=== PATIENT | male | born 1980 | race African-American/Black ===

== ENCOUNTER 2020-07-27 12:45 | Emergency (ER) | payer MEDICAID, SELFPAY ==
--- NOTE | 2020-07-27 12:50 | ED.SKABFB ---
HPI - Skin/Abscess/Foreign Bdy General Chief complaint: Skin/Abscess/Foreign Body Stated complaint: abscess on neck Time Seen by Provider: 07/27/20 12:50 Source: patient and RN notes reviewed Limitations: no limitations History of Present Illness HPI narrative: 40-year-old male presents to [facility] with complaints of a mass to the left neck, lower jawline. States that this morning he woke up and it was bigger than normal. Reports that 6 months ago it developed and was prescribed antibiotics but never fully went away. Denies chest pain. Denies abdominal pain, denies fevers, no nausea vomiting or diarrhea. No airway issues at this time. Related Data Home Medications Medication Instructions Recorded Confirmed No Home Medications 07/27/20 07/27/20 Allergies Allergy/AdvReac Type Severity Reaction Status Date / Time No Known Allergies Allergy Verified 07/27/20 13:46 Review of Systems Review of Systems: Narrative: CONSTITUTIONAL: Denies fever, chills, or sweats. EYES: Denies visual changes, redness, or discharge. ENT: Denies rhinorrhea, congestion, sore throat, or otalgia. CARDIOVASCULAR: Denies chest pain, palpitations, or edema. RESPIRATORY: Denies cough or dyspnea. GASTROINTESTINAL: Denies abdominal pain, nausea, vomiting, or diarrhea. GENITOURINARY: Denies dysuria or hematuria. SKIN: Denies rash or itching. MUSCULOSKELETAL: Denies back pain, joint pain, or myalgia. NEUROLOGIC: Denies headache, numbness, or weakness. PSYCHIATRIC: Denies anxiety or depression. All other systems reviewed are negative, except as documented in HPI. Mass to the left side of neck PMFSH Social History Social History Gender identity (if verbalized by the patient): Male Comments At the time of my signature, I reviewed and agree with the nursing past medical, surgical, social, and family history. There is no relevant family history pertinent to the patient complaint. Exam Narrative: Exam Narrative: GENERAL: This is a well-nourished, well-developed patient, in no apparent distress. HEAD: normocephalic, atraumatic. EYES: PERRL. Sclera clear/white. Vision is grossly intact. EARS: External ears normal. NOSE: External nose normal with no obvious nasal discharge, nares without redness, no rhinorrhea. THROAT: Mucous membranes moist, posterior pharynx clear. NECK: Neck supple, non-tender with left-sided lymphadenopathy or mass measuring 6-1/2 cm anterior posterior at widest margin. CARDIOVASCULAR: Regular rate and rhythm without murmurs, gallops, or rubs. RESPIRATORY: Clear to auscultation. Breath sounds equal bilaterally. No wheezes, rales, or rhonchi. GASTROINTESTINAL: Abdomen soft, non-tender, nondistended. SKIN: warm, intact with no suspicious lesions or rash, good texture and turgor. No redness around site. No facial cellulitis noted. NEURO: awake, alert, and oriented to person, place and time. There were no obvious focal neurologic abnormalities. EXTREMITIES: No clubbing, cyanosis, or edema. No joint tenderness. BACK: Nontender without deformity or crepitance. No flank tenderness. Neck: Neck: full ROM Neck images: 1. 6.5cm mass, fluctuance noted. Very mobile Course Course Emergency Course: Examination of this patient. Concern for dental abscess, abnormal mass, lymphadenopathy, cancer will refer to emergency room for evaluation, CT scan. Attempted to send to [facility] due to patient request. Spoke with , he stated he would be happy to see this patient however they have no axillary services, no ENT. 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 [id number] Robles, accepted the patient for transfer. Vital Signs Vital signs: Vital Signs Temperature 99.6 F 07/27/20 13:03 Pulse Rate 86 07/27/20 13:03 Respiratory Rate 20 07/27/20 13:03 Blood Pressure 154/104 H 07/27/20 13:03 Pulse Oximetry 99 07/27/20 13:03 Temperature 99.6 F 07/27/20 13:1
[2020-07-27 13:03] VITALS: BP 154/104; PULSE 86; RESP 20; TEMP 37.6; O2SAT 99
--- NOTE | 2020-07-27 13:06 | PC.NURSE ---
Addendum entered by Asia Dorantes RN 07/27/20 13:12: Guera Smith NP spoke with Dr Rolle at [facility] and no ENT coverage but would be happy to see patient. Guera BILL spoke with patient in regards to going to [facility] and is in agreement Original Note: Report called to [facility] appropriate paperwork signed
[2020-07-27 13:16] VITALS: BP 154/104; PULSE 86; RESP 20; TEMP 37.6; O2SAT 99
--- NOTE | 2020-07-27 13:20 | PC.NURSE ---
Report to [facility] ALFREDO and Guera Lopez [employer] spoke with Dr Salcido
== END 2020-07-27 13:24 | disposition short-term general hospital (02) ==
PROVIDERS: Emergency Provider Nurse Practitioner
DX: R22.1 Localized swelling, mass and lump, neck (principal)
CPT/HCPCS: 99202; G0463

== ENCOUNTER 2020-07-27 13:37 | Emergency (ER) | payer MEDICAID, SELFPAY ==
--- NOTE | ~2020-07-27 | CT_ITS ---
EXAMINATION: CT soft tissue neck w con DATE: 07/27/2020 15:20 INDICATION: Left neck mass. TECHNIQUE: Computed tomography (CT) of the neck was performed with 75 mL Omnipaque-350 intravenous co ntrast. Automated exposure control and iterative reconstruction technique were employed. The dose-bear gth product was 571.22 mGy-cm. COMPARISON: None FINDINGS: There is mild emphysema. There is a 5 mm nodule in right thyroid lobe, likely not clinicall y significant. There are no pathologically enlarged lymph nodes. In the left neck, there is a 3.4 x 1 .7 x 3.3 cm subcutaneous lipoma. The cervical carotid arteries are normal. There is mucosal thickenin g in the maxillary sinuses. There is moderate cervical spondylosis. There is multifocal dental diseas e. IMPRESSION: 1. Subcutaneous lipoma in the left neck. Reviewed, dictated and finalized at location A. [employer]
[2020-07-27 13:44] VITALS: BP 149/99; PULSE 68; RESP 18; TEMP 36.2; O2SAT 100
--- NOTE | 2020-07-27 13:50 | ED.GENADULT ---
HPI - General Adult General Chief complaint: Unspecified Stated complaint: Mass On Neck Time Seen by Provider: 07/27/20 13:50 History of Present Illness HPI narrative: 40 yo male w/ h/o dental infection presents to the ED for a neck mass. He reports that he has had a small bump n the left side of his neck for a long time. It has significantly increased in size over the past few days. He has previously had teeth removed near that area. It is mildly tender. No fever, chills, dental pain, drainage. Related Data Home Medications Medication Instructions Recorded Confirmed No Home Medications 07/27/20 07/27/20 Allergies Allergy/AdvReac Type Severity Reaction Status Date / Time No Known Allergies Allergy Verified 07/27/20 13:46 Review of Systems Review of Systems: All systems reviewed & are unremarkable except as noted in HPI and below Constitutional: Constitutional: Denies fever(s) Eyes: Eyes: Reports no additional eye complaints ENT: Reports system reviewed and no additional complaints, except as documented Cardiovascular: Cardiovascular: Denies chest pain Respiratory: Respiratory: Denies dyspnea [facility] Social History Social History Gender identity (if verbalized by the patient): Male Exam Const: General: healthy appearing, no acute distress and alert Orientation/consciousness: patient oriented x3 HENMT: Other: mobile fluctuant mass at the left angle of the mandible. Neck: Neck: normal visual inspection and no lymphadenopathy Resp: Effort & Inspection: normal respiratory effort Auscultation: clear to auscultation bilaterally, no rales, no rhonchi and no wheezes Cardio: Jugular venous distension: no JVD Rate: regular rate Rhythm: regular rhythm Heart sounds: no murmurs GI: Inspection: non-distended GI Palp: Yes Soft to palpation and No Tenderness to palpation present (GI) Skin: General skin exam: normal color Neuro: General: patient oriented x3 and moves all extremities Speech: normal speech Extrem: General: no edema Psych: Appearance: well kempt Affect: normal affect Course Vital Signs Vital signs: Vital Signs Temperature 36.2 C L 07/27/20 13:44 Pulse Rate 68 07/27/20 13:44 Respiratory Rate 18 07/27/20 13:44 Blood Pressure 149/99 H 07/27/20 13:44 Pulse Oximetry 100 07/27/20 13:44 Temperature 36.2 C L 07/27/20 13:44 Pulse Rate 64 07/27/20 16:03 Respiratory Rate 12 07/27/20 16:03 Blood Pressure 134/67 07/27/20 16:03 Pulse Oximetry 99 07/27/20 16:03 Medical Decision Making MDM Narrative Medical decision making narrative: Case discussed with Dr. Mujica. He would be happy to see him in clinic for potential removal. Vital Signs Vital Signs: Vital Signs Temperature 36.2 C L 07/27/20 13:44 Pulse Rate 68 07/27/20 13:44 Respiratory Rate 18 07/27/20 13:44 Blood Pressure 149/99 H 07/27/20 13:44 Pulse Oximetry 100 07/27/20 13:44 Temperature 36.2 C L 07/27/20 13:44 Pulse Rate 64 07/27/20 16:03 Respiratory Rate 12 07/27/20 16:03 Blood Pressure 134/67 07/27/20 16:03 Pulse Oximetry 99 07/27/20 16:03 Lab Data Result diagrams: 07/27/20 14:06 07/27/20 15:13 Labs: Lab Results 07/27/20 07/27/20 07/27/20 Range/Units 14:06 14:06 15:13 WBC 4.0 L (4.5-10.0) K/mm3 RBC 5.34 (4.6-6.20) M/mm3 Hgb 12.8 L (14.0-18.0) g/dL Hct 41.8 L (42.0-52.0) % MCV 78.3 L (80-100) fl MCH 24.0 L (26-34) pg MCHC 30.6 L (32-36) g/dl RDW 14.6 H (11.5-14.5) % Plt Count 165 (150-375) k/mm3 MPV TNP Immature Gran % (Auto) Not Reportable Neut % (Auto) Not Reportable Lymph % (Auto) Not Reportable [place] % (Auto) Not Reportable Eos % (Auto) Not Reportable Baso % (Auto) Not Reportable Lymph # (Auto) Not Reportable [place] # (Auto) Not Reportable Eos # (Auto) Not Reportable
[2020-07-27 14:15] LABS: Hematocrit 41.8 % (42.0-52.0); Hemoglobin 12.8 g/dL (14.0-18.0); Immature Platelet Fraction Pct 16.5 % (0.9-11.2); Mean Corpuscular HGB Conc 30.6 g/dl (32-36); Mean Corpuscular Volume 78.3 fl (80-100); Platelet Count Result 165 k/mm3 (150-375); Red Blood Count 5.34 M/mm3 (4.6-6.20); Red Cell Distribution Width 14.6 % (11.5-14.5)
[2020-07-27 14:55] LABS: Eosinophils Absolute Manual 0.04 K/mm3 (0.02-0.5); Eosinophils Percent Manual 1 % (0-4); Lymphocytes Absolute Manual 2.92 K/mm3 (1.1-4.5); Monocytes Absolute Manual 0.12 K/mm3 (0.1-0.90); Monocytes Percent Manual 3 % (3-9); Neutrophils Percent Manual 23 % (46-73); Platelet Estimate Adequate (Adequate); Total Cells Counted 100
[2020-07-27 14:56] LABS: Anisocytosis 1+ (NORMAL); Hypochromasia 1+ (NORMAL)
[2020-07-27 15:16] LABS: Estimated CRCL calculation 105 ml/min; Estimated Glomerular Filt Rate > 60
[2020-07-27 15:43] LABS: Anion Gap 4 mmol/L (8-16); Blood Urea Nitrogen 16 mg/dL (9-20); Calcium 9.6 mg/dL (8.4-10.2); Carbon Dioxide 33 mmol/L (22-30); Chloride 106 mmol/L (98-107); Estimated CRCL calculation 115 ml/min; Estimated Glomerular Filt Rate > 60; Glucose 73 mg/dL (75-110); Potassium 4.1 mmol/L (3.4-5.0); Sodium 143 mmol/L (137-145)
[2020-07-27 16:03] VITALS: BP 134/67; PULSE 64; RESP 12; O2SAT 99
== END 2020-07-27 16:04 | disposition home or self-care (01) ==
PROVIDERS: Emergency Provider Emergency Medicine
DX: D17.0 Benign lipomatous neoplasm of skin and subcutaneous tissue of head, face and neck (principal)
CPT/HCPCS: 36415; 70491; 80048; 85025; 85055; 99284; Q9967